=== PATIENT | female | born 1970 | race Two or more races ===

== ENCOUNTER 2016-09-03 08:01 | Emergency (ER) | payer OTHER ==
[2016-09-03] MEDS ORDERED: TETRACAINE HCL 0.5% OPH SOLN 2 ML OD ONE (09:30)
--- NOTE | 2016-09-03 10:38 | ER Document Report ---
ED General - General Chief Complaint: Eye Problem Stated Complaint: EYE PAIN TRAVEL OUTSIDE OF THE [place] IN LAST 30 DAYS: No - HPI Patient complains to provider of: right eye pain Notes: Patient coming in for evaluation of right eye pain and drainage. States ongoing for the last 2 days be patient denies any trauma to her eye denies wearing glasses or contacts. Patient states blurry vision and yellow drainage this morning. Patient also states tearing. Patient denies any fevers chills nausea vomiting. Patient states partially 2 weeks prior to that visit was having a slight cough/cold - Related Data Allergies/Adverse Reactions: No Known Allergies Allergy (Verified 09/03/16 08:10) Past Medical History - Social History Smoking Status: Current Some Day Smoker Chew tobacco use (# tins/day): No Frequency of alcohol use: Occasional Drug Abuse: None Family History: Reviewed & Not Pertinent Patient has suicidal ideation: No Patient has homicidal ideation: No Renal/ Medical History: Denies: Hx Peritoneal Dialysis Past Surgical History: Reports: Hx Hysterectomy Review of Systems - Review of Systems Constitutional: No symptoms reported EENT: Eye pain, Eye discharge, Blurred vision Cardiovascular: No symptoms reported Respiratory: No symptoms reported Gastrointestinal: No symptoms reported Genitourinary: No symptoms reported Female Genitourinary: No symptoms reported Musculoskeletal: No symptoms reported Skin: No symptoms reported Hematologic/Lymphatic: No symptoms reported Neurological/Psychological: No symptoms reported Physical Exam - Vital signs Vitals: Temp Pulse Resp BP Pulse Ox 97.8 F 54 L 18 118/77 98 09/03/16 08:07 09/03/16 08:07 09/03/16 08:07 09/03/16 08:07 09/03/16 08:07 Interpretation: Normal - General General appearance: Appears well, Alert - HEENT Head: Normocephalic, Atraumatic Eyes: Normal Conjunctiva: Injected - Right, Purulent discharge - Right Cornea: Normal, Other - Patient does have an area at approximately the 3 o' clock position very small of the sclera right next to the iris of edema Eyelashes: Normal Pupils: PERRL Visual acuity- Right eye: 20/40 Visual acuity- Left eye: 20/25 Visual acuity- Both eyes: 20/50 Corrective lenses worn: No - pt states does not wear glasses or contact lenses. Right intraocular pressure: 24 Left intraocular pressure: 19 Lids everted for exam: bilateral: Normal Anterior chamber: Normal Fundascopic: Normal - Respiratory Respiratory status: No respiratory distress Chest status: Nontender Breath sounds: Normal Chest palpation: Normal - Cardiovascular Rhythm: Regular Heart sounds: Normal auscultation Murmur: No - Abdominal Inspection: Normal Distension: No distension Bowel sounds: Normal Tenderness: Nontender Organomegaly: No organomegaly - Back Back: Normal, Nontender - Extremities General upper extremity: Normal inspection, Nontender, Normal color, Normal ROM , Normal temperature General lower extremity: Normal inspection, Nontender, Normal color, Normal ROM , Normal temperature, Normal weight bearing. No: Dick's sign - Neurological Neuro grossly intact: Yes Cognition: Normal Orientation: AAOx4 Sundeep Coma Scale Eye Opening: Spontaneous Sundeep Coma Scale Verbal: Oriented Sundeep Coma Scale Motor: Obeys Commands Sundeep Coma Scale Total: 15 Speech: Normal Motor strength normal: LUE, RUE, LLE, RLE Sensory: Normal - Psychological Associated symptoms: Normal affect, Normal mood - Skin Skin Temperature: Warm Skin Moisture: Dry Skin Color: Normal Course - Re-evaluation Re-evalutation: 09/03/16 15:24 Patient's evaluation is consistent with conjunctivitis. Patient will be given Polytrim drops and encouraged to use antihistamines patient was also encouraged follow-up with optometry our mud jack operator as that she does have a change her eyesight. More likely this is a chronic condition it patient states that she normally will wear reading glasses but has a history of noncompliance with this states has been a long time since she's had her eyes checked. - Vital Signs Vital signs: Temp Pulse Resp BP Pulse Ox 97.9 F 52 L 16 134/81 H 99 09/03/16 10:47 09/03/16 10:47 09/03/16 10:47 09/03/16 10:47 09/03/16 10:47 Discharge - Discharge Clinical Impression: Conjunctivitis Qualifiers: Conjunctivitis type: unspecified Laterality: right Qualified Code(s): H10.9 - Unspecified conjunctivitis Disposition: HOME, SELF-CARE Instructions: Eyedrop Use ([facility]), Conjunctivitis ([facility]) Additional Instructions: Follow-up with your primary care physician. Please use eyedrops 2 drops 4 times a day for the next 10 days. At this time your examination is consistent with either allergic viral or bacterial conjunctivae's. The eye just provided will hopefully give you good pain relief and resolved her symptoms. I will also recommend taking a daily allergy tablet such as Zyrtec I will provide you a prescription although these medications are [id number]. I would also recommend and 5-7 days your symptoms have not improved or worsened to follow-up with mud jack operator divided or any hand fur cleaner in town. Prescriptions: Cetirizine HCl [Zyrtec 10 mg Tablet] 1 tab PO DAILY #14 tablet Forms: Return to Work Referrals: BERNARDINO DAVID, [ACTIVE STAFF] - Follow up as needed
[2016-09-03] MEDS ORDERED: POLYMYXIN B SULFATE/TMP OPH SOLN 10 ML OD ONE (10:39)
[2016-09-03 10:48] VITALS: BP 134/81
== END 2016-09-03 11:05 | disposition home or self-care (01) ==
LOC: ER 08:01
DX: H10.9 Unspecified conjunctivitis (principal); H57.11 Ocular pain, right eye; F17.200 Nicotine dependence, unspecified, uncomplicated; Z90.710 Acquired absence of both cervix and uterus
CPT/HCPCS: 99282; J3490

== ENCOUNTER 2018-01-27 09:53 | Emergency (ER) | payer SELFPAY ==
[2018-01-27 09:59] VITALS: BP 120/76
[2018-01-27] MEDS ORDERED: NORMAL SALINE 1000 ML 1,000 ML IV ONE (10:40)
--- NOTE | 2018-01-27 10:43 | ER Document Report ---
ED Medical Screen (RME) - General Chief Complaint: Headache Stated Complaint: HEADACHE, COLD CHILLS, NAUSEA Time Seen by Provider: 01/27/18 10:38 TRAVEL OUTSIDE OF THE [place] IN LAST 30 DAYS: No - HPI Patient complains to provider of: generalized abdominal pain and malaise - Related Data Allergies/Adverse Reactions: No Known Allergies Allergy (Verified 01/27/18 09:56) Past Medical History Renal/ Medical History: Denies: Hx Peritoneal Dialysis Past Surgical History: Reports: Hx Hysterectomy Physical Exam - Vital signs Vitals: Temp Pulse Resp BP Pulse Ox 100.8 F H 87 14 120/76 99 01/27/18 09:58 01/27/18 09:58 01/27/18 09:58 01/27/18 09:58 01/27/18 09:58 Course - Re-evaluation Re-evalutation: 01/28/18 05:48 Delayed entry, this 47-year-old female presented for malaise generalized abdominal pain and fever. Initiated workup including urinalysis as well as labs of the blood. Administered fluid patient will need further evaluation in the emergency department, will plan for continued observation and reassessment. Patient is medically stable at this time. - Vital Signs Vital signs: Temp Pulse Resp BP Pulse Ox 100.8 F H 87 14 120/76 99 01/27/18 09:58 01/27/18 09:58 01/27/18 09:58 01/27/18 09:58 01/27/18 09:58 - Laboratory Result Diagrams: 01/27/18 11:30 01/27/18 11:30 Laboratory results interpreted by me: 01/27/18 01/27/18 11:30 12:40 WBC 11.4 H Lymphocytes % 12.3 L Absolute Neutrophils 8.7 H Urine Protein 30 H Urine Ketones TRACE H Urine Blood MODERATE H Urine Nitrite POSITIVE H Urine Urobilinogen 4.0 H Ur Leukocyte Esterase MODERATE H Doctor's Discharge - Discharge Clinical Impression: Acute pyelonephritis, Dehydration, Cholelithiasis Condition: Good Disposition: HOME, SELF-CARE Instructions: Antibiotic Therapy ([facility]), Ciprofloxacin ([facility]), Dehydration ([facility]) , Gallbladder Disease ([facility]), Pyelonephritis ([facility]), Rocephin ([facility]) Additional Instructions: Pyelonephritis Your evaluation shows evidence of pyelonephritis. This is an infection in the kidney. Typical symptoms are fever, pain in the flank, pain on urination, and frequent urination. Many cases of pyelonephritis can be treated at home. Hospital care may be necessary for patients who are very ill, or elderly or . Pyelonephritis is treated with antibiotics. Be sure to take all the medication as prescribed. Drink plenty of liquids (about three quarts per day) . You may take acetaminophen for fever. You should feel significantly improved within two days. You should have a recheck of your urine in about one week to insure that the infection is gone. Return for a re-examination if your symptoms worsen in any way -- such as high fever, shaking chills, severe weakness or dizziness, severe pain, or inability to pass your urine to the ED immediately Dehydration Dehydration can result from vomiting or diarrhea, fever, or decreased intake of fluids. If severe, hospitalization and intravenous fluids may be required. Most cases are treated at home with fluids by mouth. For the next 24 hours, drink lots of clear fluids. In mild cases, this can be soda pop or sports drinks. For more severe dehydration, the doctor may recommend special fluids such as Pedialyte or Lytren. Try to get three liters ( 3 quarts) of fluid per day. If vomiting occurs, continue to drink the fluids frequently (every 15 to 20 minutes), but in small amounts (one or two ounces). Depending on the type of dehydration, the doctor may prescribe antinausea medicine or potassium replacements. Call the doctor or return for re-examination if you become progressively weak, vomit repeatedly, or have other new symptoms. Prescriptions: Ciprofloxacin HCl [Cipro 500 mg Tablet] 500 mg PO BID 10 Days #20 tablet Ondansetron [Zofran Odt 4 mg Tablet] 1 - 2 tab PO Q4H PRN #15 tab.rapdis PRN Reason: For Nausea/Vomiting Phenazopyridine HCl [Pyridium 200 mg Tablet] 200 mg PO TID #15 tablet Forms: Return to Work Referrals: JOEY MALIK MD [ACTIVE STAFF] - Follow up in 3-5 days ASHLEY OLSON MD [ACTIVE STAFF] - Follow up in 3-5 days SONAM BETTENCOURT MD [NO LOCAL MD] - Follow up in 3-5 days
[2018-01-27 11:56] LABS: ABSOLUTE LYMPHOCYTES (AUTO) 1.4 10^3/uL (0.5-4.7); ABSOLUTE MONOCYTES (AUTO) 1.3 10^3/uL (0.1-1.4); ABSOLUTE NEUT (AUTO) 8.7 10^3/uL (1.7-8.2); BASOPHILS % (AUTO) 0.2 % (0-2); EOSINOPHILS % (AUTO) 0.1 % (0-6); HEMATOCRIT 39.5 % (36.0-47.0); HEMOGLOBIN 13.2 g/dL (12.0-15.5); LYMPHOCYTES % (AUTO) 12.3 % (13-45); MEAN CORPUSCULAR HEMOGLOBIN 30.3 pg (27.0-33.4); MEAN CORPUSCULAR HGB CONC 33.5 g/dL (32.0-36.0); MEAN CORPUSCULAR VOLUME 90 fl (80-97); PLATELET COUNT 316 10^3/uL (150-450); RED BLOOD COUNT 4.37 10^6/uL (3.72-5.28); RED CELL DISTRIBUTION WIDTH 12.5 % (11.5-14.0); SEGMENTED NEUTROPHILS % (AUTO) 76.4 % (42-78); TOTAL CELLS COUNTED % (AUTO) 100 %; WHITE BLOOD COUNT 11.4 10^3/uL (4.0-10.5)
[2018-01-27 12:04] LABS: ALANINE AMINOTRANSFERASE 39 U/L (9-52); ALBUMIN 4.1 g/dL (3.5-5.0); ALKALINE PHOSPHATASE 95 U/L (38-126); ANION GAP 12 (5-19); ASPARTATE AMINO TRANSFERASE 29 U/L (14-36); BILIRUBIN,DIRECT 0.3 mg/dL (0.0-0.4); BILIRUBIN,TOTAL 1.1 mg/dL (0.2-1.3); BLOOD UREA NITROGEN 12 mg/dL (7-20); CALCIUM 9.5 mg/dL (8.4-10.2); CARBON DIOXIDE 26 mmol/L (22-30); CHLORIDE 103 mmol/L (98-107); GLUCOSE 100 mg/dL (75-110); LIPASE 34.9 U/L (23-300); POTASSIUM 4.7 mmol/L (3.6-5.0); SODIUM 141.4 mmol/L (137-145); TOTAL PROTEIN 7.4 g/dL (6.3-8.2)
[2018-01-27] MEDS ORDERED: RINGERS SOLUTION,LACTATED 1,000 ML IV PRN (12:48)
[2018-01-27] MEDS ORDERED: ONDANSETRON 4 MG TAB.RAPDIS PO ONE (12:49)
--- NOTE | 2018-01-27 12:51 | ER Document Report ---
ED General - General Chief Complaint: Headache Stated Complaint: HEADACHE, COLD CHILLS, NAUSEA Time Seen by Provider: 01/27/18 10:38 Mode of Arrival: Ambulatory Information source: Patient TRAVEL OUTSIDE OF THE [place] IN LAST 30 DAYS: No - HPI Notes: 47-year-old female presents to the ED with complaints of nausea vomiting with loose stools, upper abdominal pain with lower back pain and myalgias that started approximately 4 days ago, getting progressively worse. Patient just started running marathons, she is in training, runs approximately 2-4 miles a day. Denies any new medications, food or travel. Patient has been around multiple people and she is a ecommerce marketing specialist restroom, patient states she has been drinking fluids. Denies fevers, chills, chest pain,palpitations, shortness of breath, dyspnea, hematuria,blurred vision, double vision, loss of vision, speech changes, LH, dizziness, syncope, headaches, wheezing, ST, URI, neck pain , weakness, bowel or bladder dysfunction, saddle anesthesia, numbness or tingling in bilateral upper or lower extremities equally, muscle paralysis, weakness in bilateral upper or lower extremities equally or rash. Denies IV drug use. - Related Data Allergies/Adverse Reactions: No Known Allergies Allergy (Verified 01/27/18 09:56) Past Medical History - General Information source: Patient - Social History Smoking Status: Unknown if Ever Smoked Family History: Reviewed & Not Pertinent Patient has suicidal ideation: No Patient has homicidal ideation: No Renal/ Medical History: Denies: Hx Peritoneal Dialysis Past Surgical History: Reports: Hx Hysterectomy Review of Systems - Review of Systems Constitutional: See HPI EENT: No symptoms reported Cardiovascular: No symptoms reported Respiratory: No symptoms reported Gastrointestinal: See HPI Genitourinary: No symptoms reported Female Genitourinary: No symptoms reported Musculoskeletal: No symptoms reported Skin: No symptoms reported Hematologic/Lymphatic: No symptoms reported Neurological/Psychological: No symptoms reported Physical Exam - Vital signs Vitals: Temp Pulse Resp BP Pulse Ox 100.8 F H 87 14 120/76 99 01/27/18 09:58 01/27/18 09:58 01/27/18 09:58 01/27/18 09:58 01/27/18 09:58 - Notes Notes: PHYSICAL EXAMINATION: GENERAL: Well-appearing, well-nourished and in no acute distress. HEAD: Atraumatic, normocephalic. EYES: Pupils equal round and reactive to light, extraocular movements intact, conjunctiva are normal. ENT: Nares patent, oropharynx clear without exudates. Moist mucous membranes. NECK: Normal range of motion, supple without lymphadenopathy LUNGS: Breath sounds clear to auscultation bilaterally and equal. No wheezes rales or rhonchi. HEART: Regular rate and rhythm without murmurs ABDOMEN: Soft, bilateral upper quadrant tenderness to abdomen. nondistended abdomen. No guarding, no rebound. No masses appreciated. Bilateral CVA tenderness Female : deferred Musculoskeletal: Normal range of motion, no pitting or edema. No cyanosis. NEUROLOGICAL: Cranial nerves grossly intact. Normal speech, normal gait. Normal sensory, motor exams PSYCH: Normal mood, normal affect. SKIN: Warm, Dry, normal turgor, no rashes or lesions noted. Course - Re-evaluation Re-evalutation: 01/27/18 14:39 Patient with a fever of 100F vital signs are stable no distress presents for evaluation of nausea vomiting loose stool, myalgias 4 days. Patient has not been drinking or eating very much. CBC shows slight leukocytosis of 11.4, CMP negative for renal or hepatic dysfunction, no electrolyte disorders. Urinalysis shows proteinuria and ketones as well as hematuria with nitrates and leukocytes. Patient does have a pyelonephritis. Urine hCG was negative we will give 1 g Rocephin. Abdomen ultrasound shows gallstones without wall thickening traction. Liver enzymes negative. Discussed with patient importance of rehydrating with Pedialyte, avoiding coffee, teas, so does this can cause dehydration, taking antibiotics as directed, advised to stay home and hydrated, work note given. Suspect this was the cause of her myalgias due to dehydration. this low suspicion for acute appendicitis, bowel obstruction, acute cholecystitis, perforated diverticulitis, incarcerated hernia, pancreatitis, PID, perforated ulcer, ectopic or tubo-ovarian abscess. There is no evidence of peritonitis sepsis or toxicity. I have reevaluated this patient multiple times and no significant life threatening changes are noted. The patient and I have discussed the diagnosis and risks, and we agree with discharging home with close follow-up with the understanding that symptoms and presentations can change. We also discussed returning to the Emergency Department immediately if new or worsening symptoms occur. We have discussed the symptoms which are most concerning (e.g., bloody stool, fever, changing or worsening pain, vomiting) that necessitate immediate return. - Vital Signs Vital signs: Temp Pulse Resp BP Pulse Ox 100.8 F H 87 14 120/76 99 01/27/18 09:58 01/27/18 09:58 01/27/18 09:58 01/27/18 09:58 01/27/18 09:58 - Laboratory Result Diagrams: 01/27/18 11:30 01/27/18 11:30 Laboratory results interpreted by me: 01/27/18 01/27/18 11:30 12:40 WBC 11.4 H Lymphocytes % 12.3 L Absolute Neutrophils 8.7 H Urine Protein 30 H Urine Ketones TRACE H Urine Blood MODERATE H Urine Nitrite POSITIVE H Urine Urobilinogen 4.0 H Ur Leukocyte Esterase MODERATE H Discharge - Discharge Clinical Impression: Acute pyelonephritis, Dehydration Cholelithiasis Qualifiers: Cholelithiasis location: gallbladder Cholecystitis presence: without cholecystitis Biliary obstruction: without biliary obstruction Qualified Code(s) : K80.20 - Calculus of gallbladder without cholecystitis without obstruction Condition: Good Disposition: HOME, SELF-CARE Instructions: Antibiotic Therapy ([facility]), Ciprofloxacin ([facility]), Dehydration ([facility]) , Gallbladder Disease ([facility]), Pyelonephritis ([facility]), Rocephin ([facility]) Additional Instructions: Pyelonephritis Your evaluation shows evidence of pyelonephritis. This is an infection in the kidney. Typical symptoms are fever, pain in the flank, pain on urination, and frequent urination. Many cases of pyelonephritis can be treated at home. Hospital care may be necessary for patients who are very ill, or elderly or . Pyelonephritis is treated with antibiotics. Be sure to take all the medication as prescribed. Drink plenty of liquids (about three quarts per day) . You may take acetaminophen for fever. You should feel significantly improved within two days. You should have a recheck of your urine in about one week to insure that the infection is gone. Return for a re-examination if your symptoms worsen in any way -- such as high fever, shaking chills, severe weakness or dizziness, severe pain, or inability to pass your urine to the ED immediately Dehydration Dehydration can result from vomiting or diarrhea, fever, or decreased intake of fluids. If severe, hospitalization and intravenous fluids may be required. Most cases are treated at home with fluids by mouth. For the next 24 hours, drink lots of clear fluids. In mild cases, this can be soda pop or sports drinks. For more severe dehydration, the doctor may recommend special fluids such as Pedialyte or Lytren. Try to get three liters ( 3 quarts) of fluid per day. If vomiting occurs, continue to drink the fluids frequently (every 15 to 20 minutes), but in small amounts (one or two ounces). Depending on the type of dehydration, the doctor may prescribe antinausea medicine or potassium replacements. Call the doctor or return for re-examination if you become progressively weak, vomit repeatedly, or have other new symptoms. Prescriptions: Ciprofloxacin HCl [Cipro 500 mg Tablet] 500 mg PO BID 10 Days #20 tablet Ondansetron [Zofran Odt 4 mg Tablet] 1 - 2 tab PO Q4H PRN #15 tab.rapdis PRN Reason: For Nausea/Vomiting Phenazopyridine HCl [Pyridium 200 mg Tablet] 200 mg PO TID #15 tablet Forms: Return to Work Referrals: JOEY MALIK MD [ACTIVE STAFF] - Follow up in 3-5 days SONAM BETTENCOURT MD [NO LOCAL MD] - Follow up in 3-5 days ASHLEY OLSON MD [ACTIVE STAFF] - Follow up in 3-5 days
[2018-01-27 13:35] LABS: A TYPE INFLUENZA AG NEGATIVE (NEGATIVE); B INFLUENZA AG NEGATIVE (NEGATIVE)
[2018-01-27 14:19] LABS: APPEARANCE,URINE SLIGHTLY-CLOUDY; BILIRUBIN,URINE NEGATIVE (NEGATIVE); COLOR,URINE YELLOW; GLUCOSE, URINE NEGATIVE (NEGATIVE); KETONES,URINE TRACE mg/dL (NEGATIVE); LEUKOCYTE ESTERASE,URINE MODERATE (NEGATIVE); NITRITE,URINE POSITIVE (NEGATIVE); PROTEIN,URINE 30 mg/dL (NEGATIVE); URINE SPECIFIC GRAVITY 1.017
--- NOTE | 2018-01-27 14:22 | RADIOLOGY REPORT (SQ) ---
EXAM DESCRIPTION: U/S ABDOMEN LIMITED W/O DOP COMPLETED DATE/TIME: 01/27/2018 2:11 pm REASON FOR STUDY: upper abdominal pain x 4 days COMPARISON: None. TECHNIQUE: Dynamic and static grayscale images acquired of the abdomen and recorded on PACS. Additio nal selected color Doppler and spectral images recorded. LIMITATIONS: None. FINDINGS: PANCREAS: No masses. Visualized pancreatic duct normal caliber. LIVER: No masses. Echotexture normal. LIVER VASCULATURE: Normal directional flow of the main portal vein and hepatic veins. GALLBLADDER: Gallstone(s). No pericholecystic fluid. No wall thickening. ULTRASOUND-DETECTED RICHARDS'S SIGN: Negative. INTRAHEPATIC DUCTS AND COMMON DUCT: CBD and intrahepatic ducts normal caliber. No filling defects. INFERIOR VENA CAVA: Normal flow. AORTA: No aneurysm. RIGHT KIDNEY: Normal size. Normal echogenicity. No solid or suspicious masses. No hydronephrosis. No calcifications. PERITONEAL AND RIGHT PLEURAL SPACE: No ascites or effusions. OTHER: No other significant findings. IMPRESSION: GALLSTONES. NO BILIARY DILATION OR OTHER SIGNIFICANT FINDINGS. TECHNICAL DOCUMENTATION: JOB ID: [id number] [employer]- All Rights Reserved Reading location - IP/workstation name: [email or web address]
[2018-01-27] MEDS ORDERED: CEFTRIAXONE INJ 1000 MG VIAL IM ONE (14:31)
[2018-01-27] MEDS ORDERED: RINGERS SOLUTION,LACTATED 500 ML IV PRN (14:37)
== END 2018-01-27 15:47 | disposition home or self-care (01) ==
LOC: ER 09:53
DX: N10 Acute pyelonephritis (principal); K80.20 Calculus of gallbladder without cholecystitis without obstruction; E86.0 Dehydration; R31.9 Hematuria, unspecified; R80.9 Proteinuria, unspecified; R50.9 Fever, unspecified; R11.2 Nausea with vomiting, unspecified; R19.4 Change in bowel habit; M54.5 Low back pain; Z90.710 Acquired absence of both cervix and uterus
CPT/HCPCS: 99284; 96372; 96361; 96365; 96366; 36415; 87086; 83690; 85025; 81025; 87088; 80053; 81001; 87186; 83605; 87804; 76705; S0119; J0696; J7030; J7120 ×2